=== PATIENT | male | born 1950 | race Caucasian/White ===

== ENCOUNTER 2020-08-07 07:19 | Outpatient (REF) | payer MEDICARE, SELFPAY ==
[2020-08-07 08:09] LABS: MANUAL DIFF FLAG NO
[2020-08-07 08:14] LABS: Basophils Percent Auto 0.4 % (0-2); Eosinophils Absolute Auto 0.1 X10*3/uL (0.0-0.4); Eosinophils Percent Auto 2.7 % (0-4); Hematocrit 40.4 % (42-52); Hemoglobin 13.3 g/dl (14.0-18.0); Imm Gran Abs Auto 0.01 X10*3/uL (0.00-0.03); Imm Gran Pct Auto 0.2 % (0.0-0.4); Lymphocytes Absolute Auto 1.2 X10*3/uL (1.2-4.9); Lymphocytes Percent Auto 23.6 % (20-40); Mean Corpuscular HGB Conc 32.9 g/dl (31.0-36.0); Mean Corpuscular Hemoglobin 28.9 pg (27.0-33.0); Mean Corpuscular Volume 87.6 fL (80-98); Mean Platelet Volume 10.4 fL (9.4-12.4); Monocytes Absolute Auto 0.7 X10*3/uL (0.1-1.2); Monocytes Percent Auto 13.9 % (2-11); Neutrophils Percent Auto 59.2 % (45-73); Platelet Count 212 X10*3/uL (160-400); Red Blood Count 4.61 X10*6/uL (4.60-5.80); Red Cell Distribution Width 13.2 % (11.0-16.0); White Blood Count 5.1 X10*3/uL (4.8-10.8)
[2020-08-07 08:35] LABS: Alanine Aminotransferase 29 U/L (0-40); Albumin Level 4.2 g/dL (3.5-5.0); Alkaline Phosphatase 83 U/L (39-117); Anion Gap 9 (12-20); Aspartate Amino Transferase 30 U/L (5-37); Bilirubin Total 0.4 mg/dL (0.0-1.0); Blood Urea Nitrogen 25 mg/dL (9-16); Calcium 9.2 mg/dL (8.4-10.2); Carbon Dioxide 30 mmol/L (22-29); Chloride 106 mmol/L (96-108); Cholesterol 189 mg/dL; Estimated Glomerular Filt Rate > 60; Glucose Fasting 101 mg/dL (60-99); HDL Cholesterol 27 mg/dL; LDL Cholesterol Calculated 124 mg/dl; Potassium 4.9 mmol/L (3.3-5.1); Sodium 140 mmol/L (135-145); Total Protein 6.8 g/dL (6.5-8.0); Triglycerides 192 mg/dL
[2020-08-07 09:03] LABS: Thyroid Stimulating Hormone 1.48 uIU/mL (0.32-4.0)
== END 2020-08-07 07:20 | disposition home or self-care (01) ==
LOC: HO.LAB 07:19
PROVIDERS: PCP Internal Medicine; Visit Provider Internal Medicine
DX: Z00.00 Encounter for general adult medical examination without abnormal findings (principal); E11.9 Type 2 diabetes mellitus without complications; E03.9 Hypothyroidism, unspecified
CPT/HCPCS: 36415; 80053; 80061; 84443; 85025

== ENCOUNTER 2020-09-12 11:51 | Outpatient (REF) | payer MEDICARE, SELFPAY ==
--- NOTE | ~2020-09-12 | XR_ITS ---
EXAMINATION: XR KNEE, LEFT CLINICAL INFORMATION: Pain COMPARISON: None TECHNIQUE: Two views of the left knee. FINDINGS: Bones and soft tissues are normal. No fracture or joint effusion. Alignment is anatomic. Joint spaces are well maintained. No abnormal soft tissue calcification. XR/XR knee LT 2V IMPRESSION: Normal left knee.
== END 2020-09-12 11:52 | disposition home or self-care (01) ==
LOC: HO.XRAY 11:51
PROVIDERS: PCP Internal Medicine; Visit Provider Internal Medicine
DX: M25.562 Pain in left knee (principal)
CPT/HCPCS: 73560

== ENCOUNTER 2020-10-25 14:00 | Outpatient (RCR) | payer MEDICARE, SELFPAY ==
[2020-09-25 08:58] VITALS: BP 140/84
--- NOTE | 2020-09-25 10:17 | MHC.PT.EP ---
[facility] [place] Office [place] Office [place] Office [address] Sloane Gardiner [address] [phone] F: [phone] F: [phone] F: [phone] F: [phone] Physical Therapy Plan of Care Date of Evaluation: Date of Surgery: Diagnosis: dizziness and giddiness Assessment: 70 y/o male referred to PT with dizziness and giddiness. Describes dizziness as imbalance and feels like he veers to the L when he walks. He also feels challenged moving his head when he walks. Examination shows normal oculomotor tests, ? head thrust but no consistent, (-) VBI B, decreased cervical and lumbar AROM, impaired static balance especially with eyes closed and on foam, 20/24 DGI with impairments noted with H/V head turns and pivot turn, and impaired gait pattern. He was (-) for BPPV with Horacio-Hallpike and Elijah Maneuver. S/s consistent with vestibular hypofunction and he would benefit from PT 2x/week for 4 weeks to address impairments, implement HEP, and optimize functional mobility. Frequency and Duration: The patient will be seen 2x/week for 4 weeks Short Term Goals: 2 weeks 1. I with HEP 2. Pt will be able to stand with eyes closed on airex >30seconds without sway Alf Goals: 4 weeks 1. I with HEP and self management of sx in order to prevent falls 2. Tolerate position changes without complaints of unsteadiness to improve safety and return to pre-onset level -3. Pt to be able to functionally move in all planes without provocation of dizziness/ unsteadiness and return to PLOF in 4 weeks Treatment Plan: Modalities to reduce pain, spasms and effusion. Manual therapy to restore motion and function. Therapeutic exercise to improve strength and flexibility. Neuromuscular re-education for posture and balance. Therapeutic activities to return to functional activities of daily living. Electronically signed by: Trupti Billings PT Please sign and return to therapist. Thank you for your referral.
--- NOTE | 2020-11-01 13:08 | MHC.PT.DC ---
[facility] [place] Office [place] Office [place] Office [address] Sloane Gardiner [address] [phone] F: [phone] F: [phone] F: [phone] F: [phone] Physical Therapy Discharge Report Diagnosis: dizziness and giddiness Date of Surgery: Date of Evaluation: 09/25/20 Date of Discharge: 11/01/20 Treatments to Date: 8 Cancellations to Date: 0 No Shows to Date: 0 Discharge Status: Improved Function Independent with HEP Discharge Summary: Pt called to self d/c as he reports feeling better overall. At time of last attended visit, Continues to be challenged with staggered stance eyes closed static balance, but improves with eyes open. Walking with head turns, pt continues to minimally veer to L, but improves with increased repetitions. Introduced walking with ball pass/toss, pt able to maintain balance with no veering or mis-stepping. Anticipate d/c next visit to [facility]. Pt showing improvements with gait, balance, and he has noticed carryover into work/ daily life. Still mildly changed with narrow KEZIA eyes closed conditions. Electronically signed by: Trupti Billings PT Please sign and return to therapist. Thank you for your referral.
== END 2020-11-01 13:09 | disposition home or self-care (01) ==
LOC: HO.PTCHIC 14:00
PROVIDERS: PCP Internal Medicine; Visit Provider Internal Medicine
DX: R42 Dizziness and giddiness (principal)
CPT/HCPCS: 97110; 97112; 97162

== ENCOUNTER 2020-12-25 15:31 | Outpatient (REF) | payer MEDICARE, SELFPAY ==
[2020-12-25 16:19] LABS: MANUAL DIFF FLAG NO
[2020-12-25 16:24] LABS: Basophils Percent Auto 0.4 % (0-2); Eosinophils Absolute Auto 0.1 X10*3/uL (0.0-0.4); Eosinophils Percent Auto 2.2 % (0-4); Hematocrit 38.5 % (42-52); Hemoglobin 12.7 g/dl (14.0-18.0); Imm Gran Abs Auto 0.02 X10*3/uL (0.00-0.03); Imm Gran Pct Auto 0.4 % (0.0-0.4); Lymphocytes Absolute Auto 1.2 X10*3/uL (1.2-4.9); Lymphocytes Percent Auto 22.3 % (20-40); Mean Corpuscular Volume 87.9 fL (80-98); Mean Platelet Volume 10.6 fL (9.4-12.4); Monocytes Absolute Auto 0.7 X10*3/uL (0.1-1.2); Monocytes Percent Auto 12.2 % (2-11); Neutrophils Absolute Auto 3.3 X10*3/uL (2.0-8.3); Neutrophils Percent Auto 62.5 % (45-73); Platelet Count 210 X10*3/uL (160-400); Red Blood Count 4.38 X10*6/uL (4.60-5.80); Red Cell Distribution Width 13.1 % (11.0-16.0); White Blood Count 5.3 X10*3/uL (4.8-10.8)
[2020-12-25 16:54] LABS: Digoxin 0.7 ng/mL (0.8-2.0)
[2020-12-25 16:56] LABS: Blood Urea Nitrogen 25 mg/dL (9-16); Calcium 9.5 mg/dL (8.4-10.2); Estimated Glomerular Filt Rate > 60; Glucose Random 106 mg/dL (60-115)
[2020-12-25 17:18] LABS: Carbon Dioxide 30 mmol/L (22-29)
[2020-12-25 17:21] LABS: Anion Gap 10 (12-20); Chloride 104 mmol/L (96-108); Potassium 5.3 mmol/L (3.3-5.1); Sodium 139 mmol/L (135-145)
== END 2020-12-25 15:32 | disposition home or self-care (01) ==
LOC: HO.LAB 15:31
PROVIDERS: PCP Internal Medicine; Visit Provider Internal Medicine
DX: Z00.00 Encounter for general adult medical examination without abnormal findings (principal); R51.9 Headache, unspecified; I48.91 Unspecified atrial fibrillation; Z79.899 Other long term (current) drug therapy
CPT/HCPCS: 36415; 80048; 80162; 85025

== ENCOUNTER 2021-08-15 09:10 | Outpatient (REF) | payer BC, SELFPAY ==
[2021-08-15 10:54] LABS: Digoxin 0.5 ng/mL (0.8-2.0)
== END 2021-08-15 09:11 | disposition home or self-care (01) ==
LOC: HO.LAB 09:10
PROVIDERS: PCP Internal Medicine; Visit Provider Internal Medicine
DX: Z79.899 Other long term (current) drug therapy (principal); R26.89 Other abnormalities of gait and mobility
CPT/HCPCS: 36415; 80162

== ENCOUNTER 2022-05-13 13:10 | Outpatient (REF) | payer SELFPAY ==
--- NOTE | 2022-05-13 14:02 | MHC.AU.HA3 ---
Hearing Instrument Follow-Up- Binaural Date of Visit: 05/13/22 Follow-Up Summary: Patient was last at our clinic on 05/24/2019 for an audiological evaluation. He had a pair of [employer] hearing aids at the time, and followed up afterwards with a clinic that worked with [employer]. Since then he has purchased a pair of [employer] OPN RITEs from another clinic. Last night, he took the left instrument off, and the dome stayed in his ear. He inquired if we could get the dome out. The dome was able to successfully be removed from his left ear with tweezers. There is no redness or irritation in the canal. There is no wax. A new dome was placed on the left hearing aid, which appeared to stay on more securely. Recommendations: If the dome continues to fall off easily, he should follow up with the dispensing clinic. Diagnosis Code(s): Primary Diagnosis: H90.3 Bilateral Sensorineural Hearing Loss Signature: Provider: Rupali Carbajal, MELISSA-A
== END 2022-05-13 13:11 | disposition home or self-care (01) ==
LOC: HO.HAP 13:10
PROVIDERS: Visit Provider Internal Medicine
DX: Z46.1 Encounter for fitting and adjustment of hearing aid (principal); H90.3 Sensorineural hearing loss, bilateral
CPT/HCPCS: 92700

== ENCOUNTER 2024-05-14 10:31 | Emergency (ER) | payer MEDICARE, SELFPAY ==
[2024-05-14] VITALS (8 sets, daily range): BP systolic 127–163; BP diastolic 61–88; PULSE 72–80; RESP 14–18; TEMP 36.6–36.8; O2SAT 92–98; BMI 26.2
--- NOTE | ~2024-05-14 | CT_ITS ---
CLINICAL HISTORY: trauma, pain CT head without contrast Comparison: CT/SD/SR - BRAIN WO IV CONTRAST 01208 - 10/03/18 02:34 EDT Findings: No evidence of acute territorial infarct. There is mild scattered patchy low density in the periventricular and subcortical white matter. Diffuse volume loss is noted. No hydrocephalus. No hemorrhage, mass effect, mass lesion or midline shift. No abnormal extra-axial fluid. No calvarial fracture. Paranasal sinuses and mastoid air cells are clear. Impression: No evidence of acute process. Ischemic microangiopathy and diffuse volume loss. This document has been electronically signed by: Hugo Lee MD on 05/14/2024 13:56:06
--- NOTE | ~2024-05-14 | CT_ITS ---
CLINICAL HISTORY: trauma, pain CT abdomen and pelvis with contrast Comparison: None Findings: Moderately large right effusion with overlying consolidation. Right 8th rib fracture again noted. The liver, spleen, gallbladder, adrenal glands and pancreas demonstrate no acute process. Renal cysts are present. No obstructive uropathy or suspicious lesion. The bladder is decompressed. The prostate gland is mildly enlarged with coarse calcifications. There is no bowel obstruction or free air. Small fat containing bilateral inguinal hernias are noted. No free fluid, abscess or adenopathy. No retroperitoneal or intraperitoneal hemorrhage. Reformatted imaging of the lumbosacral spine demonstrates multilevel degenerative change without fracture or acute malalignment. Impression: Other than the previously described right-sided 8th rib fracture, there is no evidence of solid organ or hollow visceral traumatic injury involving the abdomen or pelvis. Several incidental findings. This document has been electronically signed by: Hugo Lee MD on 05/14/2024 13:55:42
--- NOTE | ~2024-05-14 | XR_ITS ---
CLINICAL HISTORY: fall 2 view chest x-ray Comparison: CR/SR - CHEST 2 VIEWS - 10/11/18 12:06 EDT Findings: There is patchy right lower lobe consolidation with a small right effusion. Cardiac and mediastinal contours are stable. No acute fracture. IMPRESSION: Patchy right lower lobe infiltrate, with a small right effusion. This document has been electronically signed by: Hugo Lee MD on 05/14/2024 12:21:01
--- NOTE | ~2024-05-14 | CT_ITS ---
CLINICAL HISTORY: abnormal CXR, r o pulmonary contusio CT chest with contrast Comparison: None Findings: The heart is mildly enlarged. There is atherosclerotic disease of the coronary arteries. No thyroid lesion. Multiple mildly enlarged lymph nodes are present within the mediastinum, nonspecific. No dissection or aneurysms. No central pulmonary embolism. There is a moderately large right effusion with overlying consolidation. There is no evidence of pneumothorax. There is a minimally displaced right 8th rib fracture. No left-sided rib fracture. Reformatted imaging of the spine demonstrates no fracture or malalignment. Impression: Minimally displaced right lateral 8th rib fracture. No pneumothorax. Moderately large right-sided effusion with overlying consolidation. Mild mediastinal adenopathy, nonspecific. Clinical follow-up recommended. Cardiomegaly. This document has been electronically signed by: Hugo Lee MD on 05/14/2024 13:53:29
--- NOTE | ~2024-05-14 | CT_ITS ---
CLINICAL HISTORY: trauma, pain CT cervical spine without contrast Comparison: None Findings: No fracture or acute malalignment. Multilevel degenerative changes are present most pronounced within the lower cervical spine. Facet joints are normally imbricating. No prevertebral soft tissue edema. No thyroid lesion. Impression: Multilevel degenerative change without acute process. This document has been electronically signed by: Hugo Lee MD on 05/14/2024 13:47:13
[2024-05-14 12:24] LABS: MANUAL DIFF FLAG NO
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
[2024-05-14] MEDS: ondansetron HCL 4 MG/2 ML VIAL IVPUSH (12:25)
[2024-05-14] MEDS: Morphine Sulfate 2 MG/ML CARTRIDGE IVPUSH (12:25)
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
[2024-05-14 12:35] LABS: Basophils Percent Auto 0.3 % (0-2); Eosinophils Absolute Auto 0.1 X10*3/uL (0.0-0.4); Hematocrit 32.7 % (42.0-52.0); Hemoglobin 10.8 g/dl (14.0-18.0); Imm Gran Abs Auto 0.03 X10*3/uL (0.00-0.03); Imm Gran Pct Auto 0.4 % (0.0-0.4); Lymphocytes Absolute Auto 1.2 X10*3/uL (1.2-4.9); Mean Corpuscular Hemoglobin 29.1 pg (27.0-33.0); Mean Corpuscular Volume 88.1 fL (80.0-98.0); Mean Platelet Volume 10.2 fL (9.4-12.4); Monocytes Percent Auto 13.1 % (2-11); Neutrophils Absolute Auto 5.6 x10*3/uL (2.0-8.3); Neutrophils Percent Auto 70.2 % (45-73); Platelet Count 223 X10*3/uL (160-400); Red Blood Count 3.71 X10*6/uL (4.60-5.80); Red Cell Distribution Width 13.7 % (11.0-16.0); White Blood Count 7.9 X10*3/uL (4.8-10.8)
[2024-05-14 12:38] LABS: INTERNATIONAL NORM RATIO 3.7 (0.9-1.1); Prothrombin Time 42.9 SEC (10.9-12.4)
--- NOTE | 2024-05-14 12:40 | ECG_ITS ---
Test Reason : TRAUMA Blood Pressure : */* mmHG Vent. Rate : 75 BPM Atrial Rate : * BPM P-R Int : * ms QRS Dur : 88 ms QT Int : 376 ms P-R-T Axes : * 70 -81 degrees QTcB Int : 419 ms Atrial fibrillation with frequent ventricular-paced complexes ST & T wave abnormality, consider inferolateral ischemia Abnormal ECG When compared with ECG of 03-Oct-2018 03:00, Intermittent natice conduction is noted Referred By: Ariana Field Electronically Signed By: HECTOR MCFADDEN MD
[2024-05-14] MEDS: iohexoL 350 MG/ML 100 ML INFUS..BTL IV (12:52)
[2024-05-14 12:56] LABS: Alanine Aminotransferase 22 U/L (0-40); Albumin Level 4.1 g/dL (3.5-5.0); Alkaline Phosphatase 82 U/L (39-117); Anion Gap 11 (12-20); Aspartate Amino Transferase 32 U/L (5-37); Bilirubin Total 0.5 mg/dL (0.0-1.0); Blood Urea Nitrogen 39 mg/dL (9-16); Calcium 9.3 mg/dL (8.4-10.2); Carbon Dioxide 27 mmol/L (22-29); Chloride 106 mmol/L (96-108); Creatinine Clr Calc Pharmacy 54.2; Estimated Glomerular Filt Rate > 60; Glucose Random 95 mg/dL (60-115); Potassium 4.7 mmol/L (3.3-5.1); Sodium 139 mmol/L (135-145); Total Protein 7.2 g/dL (6.5-8.0)
[2024-05-14] MEDS: 0.9 % Sodium Chloride 500 ML 999 ML IV (13:10)
[2024-05-14 13:21] LABS: Troponin-I High Sensitivity 25.4 ng/L (<3.5-35.0)
--- NOTE | 2024-05-14 14:02 | PC.NURSE ---
IVF administered per provider order. ekg performed/provided to MD. pt pending CT results at this time. pt remains on 2L via NC - no sob/wob noted. respirations even/unlabored. plan of care ongoing.
[2024-05-14] MEDS: Morphine Sulfate 4 MG/ML CARTRIDGE IVPUSH (14:35)
--- NOTE | 2024-05-14 14:37 | PC.NURSE ---
pt verbalizes increase in pain despite previous interventions. pt remedicated per provider order. effectiveness pending. pt/ notified/aware of plan in regards to being transferred to [facility].
--- NOTE | 2024-05-14 16:11 | PC.NURSE ---
report given to SYL alberts at this time.
--- NOTE | 2024-05-14 16:18 | PC.NURSE ---
attempted to call and give report to RN at [facility] at this time - no response. will reattempt.
== END 2024-05-14 18:52 | disposition short-term general hospital (02) ==
PROVIDERS: Nurse Practitioner Family; Emergency Provider Emergency Medicine
DX: S22.31XA Fracture of one rib, right side, initial encounter for closed fracture (principal); R07.81 Pleurodynia; J90 Pleural effusion, not elsewhere classified; I48.91 Unspecified atrial fibrillation; R94.31 Abnormal electrocardiogram [ECG] [EKG]; R11.0 Nausea; R10.2 Pelvic and perineal pain; M54.2 Cervicalgia; R51.9 Headache, unspecified; V86.59XA Driver of other special all-terrain or other off-road motor vehicle injured in nontraffic accident, initial encounter; Y93.89 Activity, other specified; Y92.89 Other specified places as the place of occurrence of the external cause; Y99.8 Other external cause status; Z79.01 Long term (current) use of anticoagulants; Z79.899 Other long term (current) drug therapy
CPT/HCPCS: 36415; 70450; 71046; 71260; 72125; 74177; 80053; 84484; 85025; 85610; 93005; 96361; 96374; 96375; 99285; J2270; J2405; Q9967

== ENCOUNTER → 2024-05-14 10:52 | Outpatient (BNV) | payer MEDICARE, SELFPAY | PROVIDERS: Emergency Provider Emergency Medicine; Visit Provider Radiology Vascular & Interventional Radiology | DX: R07.82 Intercostal pain (principal); R06.02 Shortness of breath; R10.10 Upper abdominal pain, unspecified | CPT/HCPCS: 70450; 71046; 71260; 72125; 74177 ==

== ENCOUNTER → 2024-05-14 12:40 | Outpatient (BNV) | payer MEDICARE, SELFPAY | PROVIDERS: Emergency Provider Emergency Medicine; Visit Provider Internal Medicine Cardiovascular Disease | DX: R94.31 Abnormal electrocardiogram [ECG] [EKG] (principal) | CPT/HCPCS: 93010 ==

== ENCOUNTER 2025-01-19 09:30 | Day surgery (SDC) | payer MEDICARE, SELFPAY ==
--- OUTSIDE RECORDS SUMMARY | 2024-09-14 09:55 | XMS_ITS ---
Author Organization [facility] Address [address] [place] [phone] Care Team Providers Care Retail Advertising Account Executive Name Role Phone Robert Holland Primary Care Provider Ronan Napier Jr REASON FOR VISIT COLON SCREENING Encounters Encounter Location Date Provider Diagnosis [facility] [address] [place] [phone] 09/14/2024 Ronan Wilcox Jr Plan Of Treatment Next Appt Details Provider Name:Ronan palmer Jr, 01/19/2025 12:40:00 PM, [address] [place] [address] , [place], [place], [phone], Progress Notes * JAMES SANDHU PDOB: [birth year] (74 yo M)Acc No.[id number]:09/14/2024 Progress Notes Patient: Wade CLARKE JAMES Solomon Provider: Manolo Wilcox MD :1950 A ge:74 Y S ex:Male Date:09/14/2024 Address:[address] [place], [place] [id number] Pcp:Robert Holland Subjective: * Chief Complaints: * 1 . COLON SCREENING. * Medical History: Objective: * Vitals: Assessment: Plan: * Treatment: * * The named appointment provid er may or may not be the originator of this progress note, and it is not deemed complete until electronically signed by the appointment provider. Sign off status: Pending * Provider: Manolo Wilcox MD Date: 0 09/14/2024 Generated for Javon hall/Debbie/Demetrius on: 0 12/22/2024 10:40 AM EDT
--- OUTSIDE RECORDS SUMMARY | 2024-12-21 10:55 | XMS_ITS ---
Author Organization [facility] Address [address] [place] [phone] Care Team Providers Care Water Supply Technician Name Role Phone Robert Holland Primary Care Provider Ronan Napier Jr [phone] Allergies No Known Allergies REASON FOR VISIT Patient presents today for a COLON SCREENING Medications Medication SIG (Take, Route, Fr equency, Duration) Notes Start Date End Date Status Warfarin Sodium 5 MG 1 tablet Orally Once a day Active Digoxin 0.25 MG/ML as directed daily Active Problems Problem Type SNOMED Code ICD Code Onset Dates Problem Status W/U Status Risk Notes Problem Screening for malignant neoplasm of colon (512756623) Encounter for screening for malignant neoplasm of colon (Z12.11) Active confirmed Problem Long-term current use of anticoagulant (439871203) director asset (current) use of anticoagulants (Z79.01) Active confirmed Problem History of adenomatous polyp of colon (Z86.0101) Active confirmed Vital Signs Temperature 99.3 degrees Fahrenheit 12/22/19 25 Blood pressure systolic 001 mm Hg 12/22/19 25 Blood pressure diastolic 01 mm Hg 025 Height 67.25 in 12/21/2024 Weight 161.0 lbs 12/21/2024 BMI 25.03 kg/m2 12/21/2024 Encounters Encounter Location Date Provider Diagnosis [facility] [address] [place] [phone] 12/21/2024 Ronan Wilcox Jr Encounter for screening for malignant neoplasm of colon Z12.11 ; correction (current) use of anticoagulants Z79.01 and History of adenomatous polyp of colon Z86.0101 Assessments Encounter Date Diagnosis (ICD Code) Assessment Notes Treatment Notes Treatment Clinical Notes Section Notes 12/21/2024 Encounter for screening for malignant neoplasm of colon (ICD-10 - Z12.11) Personal history of colon we discussed colonoscopy today. We discussed risks and benefits of the procedure today. We discussed that this is optional after age 75. He understands risks and benefits and agrees to proceed. He will contact the Coumadin clinic and arrange for bridging with Lovenox prior to the procedure. We will obtain his most recent cardiology evaluations. 12/21/2024 correction (current) use of anticoagulants (ICD-10 - Z79.01) Personal history of colon we discussed colonoscopy today. We discussed risks and benefits of the procedure today. We discussed that this is optional after age 75. He understands risks and benefits and agrees to proceed. He will contact the Coumadin clinic and arrange for bridging with Lovenox prior to the procedure. We will obtain his most recent cardiology evaluations. 12/21/2024 History of adenomatous polyp of colon (ICD-10 - Z86.0101) Personal history of colon we discussed colonoscopy today. We discussed risks and benefits of the procedure today. We discussed that this is optional after age 75. He understands risks and benefits and agrees to proceed. He will contact the Coumadin clinic and arrange for bridging with Lovenox prior to the procedure. We will obtain his most recent cardiology evaluations. Plan Of Treatment Future Test Test Name Order Date COLONOSCOPY 12/21/2024 Next Appt Details Provider Name:Ronan Nunez palmer , 01/19/2025 12:40:00 PM, [address] [place] [address], [id number], Progress Notes * JAMES SANDHU PDOB: [birth year] (74 yo M)Acc No.[id number]:12/21/2024 Progress Notes Patient: JAMES VALENTINE Provider: Manolo Wilcox MD :1950 A ge:74 Y S ex:Male Date:12/21/2024 Address:[address] [place], [place] [id number] Pcp:Robert Holland Subjective: * Chief Complaints: * 1 . Patient presents today for a COLON SCREENING. * Medical History: C olonoscopy 08-25-2006, Colon polyp, Elevated cholesterol, A Fib, Pacemaker. 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 * Family History: F ather: , Father-brain ca. M other: . P aternal Grand Mother: Paternal Grandmother-ovarian ca. No family history of colon cancer or liver cancer. * Social History: T obacco Use: T obacco Use/Smoking A re you a: former smoker , How long has it been since you last smoked?: > 10 years. D rugs/Alcohol: A lcohol Screen P oints: 2, Interpretation: Negative. M iscellaneous: M arital status: . Occupation: photo studio assistant. * Medications: T aking Warfarin Sodium 5 MG Tablet 1 tablet Orally Once a day , Taking Digoxin 0.25 MG/ML Solution as directed daily , Discontinued Gemfibrozil , Discontinued Coumadin , Discontinued Aspir-81 , Discontinued MoviPrep 100 GM Solution Reconstituted as directed Orally DIRECTED , Medication List reviewed and reconciled with the patient * Allergies: N .K.D.A. Objective: * Vitals: W t:161.0lbs, Ht: 67.25 in, BMI:25.03Index, BP:001/01mm Hg, Temp:99.3, Wt-k.03. Assessment: * Assessment: 1. L thomas term (current) use of anticoagulants - Z79.01 (Primary) 2 . E ncounter for screening for malignant neoplasm of colon - Z12.11 3 . H istory of adenomatous polyp of colon - Z86.0101 Personal history of colon we discussed colonoscopy today. We discussed risks and benefits of the procedure today. We discussed that this is optional after age 75. He understands risks and benefits and agrees to proceed. He will contact the Coumadin clinic and arrange for bridging with Lovenox prior to the procedure. We will obtain his most recent cardiology evaluations. Plan: * Treatment: 2.?Encounter for screening for malignant neoplasm of colon?Procedure: COLONOSCOPY (Ordered for 12/21/2024)* sched for 01/05/25 at 12:40 p mmacmiralax 3.?History of adenomatous polyp of colon?Procedure: COLONOSCOPY (Ordered for 12/21/2024)* sched for 01/05/25 at 12:40 p mmacmiralax * Preventive Medicine: Counseling: C are goal follow-up plan: A yessenia Normal BMI Follow-up D ietary management education, guidance, and counseling, B OR management provided Y es. Screenings: F all Risk Screening F all Risk Assessment: N o falls in the past year, S creening: N o falls in the past year, A ssessment: N ot performed, no reason specified, P maulik of Care: N ot documented, no reason specified. * * The named appointment provid er may or may not be the originator of this progress note, and it is not deemed complete until electronically signed by the appointment provider. Sign off status: Pending * Provider: Manolo Wilcox MD Date: 0 12/21/2024 Generated for Javon hall/Debbie/Nimcoitting on: 0 12/22/2024 10:40 AM EDT
--- OUTSIDE RECORDS SUMMARY | 2024-12-22 10:41 | XMS_ITS | Clinical Summary ---
Author Organization [facility] Address [address] [place] [phone] Phone Care Team Providers Care Marketing Production Specialist Name Role Phone Robert Holland MD Primary Care Provider + Allergies No known active allergies Medications ondansetron (ZOFRAN-ODT) 4 MG disintegrating tablet (To-Go) Take 1-2 tablet(s) by mouth every 8 hours as needed for nausea/vomi ting 6 tablet 3 Active Social History Tobacco Use Types Packs/Day Years Used Date Smoking Tobacco: Former Cigarettes Smokeless Tobacco: Never Tobacco Cessation:Counseling Given: Not Answered Alcohol Use Standard Drinks/Week Comments Yes 0 (1 standard drink = 0.6 oz pur e alcohol) occ Education Answer Date Recorded Are you interested in more education? Not on krys e 10/06/2022 Are you concerned about learning? Not on file 10/06/2022 No 10/06/2022 No 10/06/2022 Digital Access Answer Date Recorded No 10/06/2022 No 10/06/2022 Reliable internet access at home? Not on file 10/06/2022 Device with a working camera? Not on file Intimate Partner Violence Answer Date R ecorded Are you denied basic needs s uch as food, clothing, or medical care? No 03/13/2023 In the past 12 months have y ou been in a relationship with a person who hurts, threatens, or tries to control you? No 03/13/2023 Are you denied basic needs s uch as food, clothing, or medical care? No 03/13/2023 In the past 12 months have y ou been in a relationship with a person who hurts, threatens, or tries to control you? No 03/13/2023 Sex and Gender Information Value Date Recorded Sex Assigned at Male 03/13/2023 4:55 PM EST Legal Sex Male 7:18 PM EST Gender Identity Male 03/13/2023 4:55 PM EST Sexual Orientation Straight 03/13/2023 4: 55 PM EST Last Filed Vital Signs Vital Sign Reading Time Taken Comments Blood Pressure 136/70 03/13/2023 9:27 PM EST Pulse 72 03/13/2023 9:27 PM EST Temperature 36.7 C (98.1 F) 03/13/2023 8:02 PM EST Respiratory Rate 16 03/13/2023 9:27 PM EST Oxygen Saturation 100% 03/13/2023 9:27 PM EST Inhaled Oxygen Concentration - - Weight 73.5 kg (162 lb) 03/13/2023 4:57 PM EST Height 170.2 cm (5' 7 ) 03/13/2023 4:57 PM EST Body Mass Index 25.37 03/13/2023 4:57 PM EST Plan of Treatment Health Maintenance Due Date Last Done Comments LIPID PANEL 1950 DEPRESSION SCREENING 1960 SMOKING Hx and SMOKELESS TOBACCO SCREENING 1961 HEPATITIS C SCREENING 1966 RSV VACCINE (1 - 1-dose 75+ series) 2023 COVID-19 VACCINE (2023- season) 2023 INFLUENZA VACCINE (#1) 2024 2, 01/21/2021, 01/08/2020, Additional history exists Adult Td,Tdap Booster 01/28/2026 01/29/2016 PNEUMOCOCCAL VACCINES (50+ years) Completed 01/19/2018, 09/30/2017, 05/17/2014 ZOSTER VACCINES Completed 06/28/2019, 02/25/2019 HEPATITIS A VACCINES Aged Out No long er eligible based on patient's age to complete this topic HIB VACCINES Aged Out No longer eligi ble based on patient's age to complete this topic MENINGOCOCCAL VACCINES (ACWY) Aged Out No longer eligible based on patient's age to complete this topic MENINGOCOCCAL VACCINES (B) Aged Out N o longer eligible based on patient's age to complete this topic Medical Devices Not on file Insurance MEDICARE PPO BLUE REPLACEMENT MEDICARE PPO BLUE REPLACEMENT MEDICARE PPO BLUE REPLACEMENT MEDICARE PPO BLUE REPLACEMENT MEDICARE PPO BLUE REPLACEMENT MEDICARE PPO BLUE REPLACEMENT Care Teams Marketing Production Specialist Relationship Specialty Start Date End Date Robert Holland MD [address] [place] [id number] PCP - General 10/06/22 Additional Source Comments The information contained in this document represents components of the legal health record. It is not the complete legal health record.[facility]
--- OUTSIDE RECORDS SUMMARY | 2024-12-22 10:41 | XMS_ITS | Patient Health Record ---
Author Organization [facility] Address [address] [place] [address] Care Team Providers Care Bucket Hooker Name Role Phone Robert Holland Primary Care Provider Ronan Napier Jr Unavailable [phone] Allergies No Known Allergies Reason For Referral No Information Medications Medication SIG (Take, Route, Fr equency, Duration) Notes Start Date End Date Status Digoxin 0.25 MG/ML as directed daily Active Warfarin Sodium 5 MG 1 tablet Orally Once a day Active Immunizations Vaccine Route Administration Date Status Comme nts Influenza Unknown 03/15/2024 Administered Problems Problem Type SNOMED Code ICD Code Onset Dates Problem Status W/U Status Risk Notes Problem Colon cancer screening (856884860) Colon cancer screening (V76.51) Active confirmed Problem Rectal bleeding (37312300) Rectal bleeding (569.3) Active confirmed Problem Long-term current use of anticoagulant (036481630) watermaster (current) use of anticoagulants (V58.61) Active confirmed Problem Screening for malignant neoplasm of colon (010086314) Encounter for screening for malignant neoplasm of colon (Z12.11) Active confirmed Problem Long-term current use of anticoagulant (170440666) custodial (current) use of anticoagulants (Z79.01) Active confirmed Problem History of adenomatous polyp of colon (486224121) History of adenomatous polyp of colon (Z86.0101) Active confirmed Vital Signs Temperature 99.3 degrees Fahrenheit 12/21/2024 Blood pressure diastolic 01 mm Hg 12/21/2024 Height 67.25 in 12/21/2024 Blood pressure systolic 001 mm Hg 12/21/2024 Weight 161.0 lbs 12/21/2024 BMI 25.03 kg/m2 12/21/2024 Encounters Encounter Location Date Provider Diagnosis [facility] [address] [place] [address] 12/21/2024 Ronan Wilcox Jr Encounter for screening for malignant neoplasm of colon Z12.11 ; custodial (current) use of anticoagulants Z79.01 and History of adenomatous polyp of colon Z86.0101 [facility] [address] [place] [phone] 09/11/2024 Ronan Wilcox Jr Assessments Encounter Date Diagnosis (ICD Code) Assessment [...] obtain his most recent cardiology evaluations. 12/21/2024 watermaster (current) use of anticoagulants (ICD-10 - Z79.01) [...] Future Test Test Name Order Date COLONOSCOPY 11/11/2011 COLONOSCOPY 12/21/2024 Next Appt Details Provider Name:Ronan palmer Jr, 01/19/2025 12:40:00 PM, [address] , [place], [place], [id number], Insurance Providers Payer Name Payer Address Payer Phone Subscriber Number Group Number Insured Name Patient Relationship to Insured Coverage Start Date Coverage End Date [facility] [address] [place] [address] [phone] [id number] JAMES SANDHU Self - patient is the insured Medical (General) History Medical History History ICD Code colonoscopy 08-25-2006 colon polyp elevated cholesterol A Fib Pacemaker Surgical History Surgery Date(Month/Year) pacemaker 2008 mitral valve replacement with mechanical St. Judes valve hemorrhoid surgery hernia repair x 3
--- OUTSIDE RECORDS SUMMARY | 2024-12-22 10:41 | XMS_ITS ---
Author Name [facility] Organization Unknown Care Team Organization Name Specialty Phone Email Start Date End [id number]
--- OUTSIDE RECORDS SUMMARY | 2024-12-22 10:41 | XMS_ITS | Clinical Summary ---
Author Organization [facility], Address [address] [place] [address] [address] [place] [address] Phone Care Team Providers Care Instrumental Musician Name Role Phone Nleson Angelo MD Primary Care Provider [phone] Allergies No known active allergies Medications Calcium Carbonate-Vit D-Min (CALTRATE PLUS PO) Take by mouth Active digoxin (LANOXIN) 250 MCG tablet Take 250 mcg by mouth 1 (one) time each day Active Flaxseed, Linseed, (Flax Seed Oil) 1000 MG capsule Take by mouth Activ e warfarin (COUMADIN) 5 MG tablet Take 5 mg by mouth 1 (one) time each day Take as directed per After Visit Summary. Active Active Problems Problem Noted Date Diagnosed Date Multiple renal cysts 04/07/2022 Hyperkalemia 04/07/2022 Anemia 04/02/2022 Social History Tobacco Use Types Packs/Day Years Used Date Smoking Tobacco: Never Assessed Sex and Gender Information Value Date Recorded Sex Assigned at Not on file Legal Sex Male 8:51 AM EST Gender Identity Not on file Sexual Orientation Not on file Plan of Treatment Health Maintenance Due Date Last Done Comments Influenza Vaccine (#1) 2024 Pneumococcal Vaccine: 50+ Years Completed 01/19/2018, 09/30/2017, 05/17/2014 Hepatitis B Vaccine Aged Out No longe r eligible based on patient's age to complete this topic Insurance [facility] Care Teams Instrumental Musician Relationship Specialty Start Date End Date Nelson Angelo MD [address] [place] [address] [address] [place], [place] PCP - General Internal Medicine 03/10/22
[2025-01-17 10:39] VITALS: BMI 25.0
[2025-01-19 09:50] VITALS: BP 162/97; PULSE 87; RESP 20; TEMP 36.4; O2SAT 97; BMI 24.7
[2025-01-19] MEDS: Lactated Ringers 1,000 ML 50 ML IVCONT (10:09)
--- NOTE | 2025-01-19 10:30 | P.CONAN_ITS ---
Documented by User: Veronique Sosa NP 01/17/25 12:52 HPI - Anesthesia Eval Consult details Narrative: 74yo M for Colonoscopy Follows [facility] for s/p MVR 2002, afib, pacer. No echo within 5 years. Stable at 05/2024 office visit. On Warfarin [facility] ER 12/2024 with dizziness - w/u negative and d/c home PMFSH Active Problems Active Problems: All Active Problems Cough (Acute) Balance disorder (Acute) Conjunctivitis (Acute) Vertigo (Acute) Dizziness (Acute) Ear pressure (Acute) Atrial fibrillation (Acute) Past Medical History Medical History (Updated 01/17/25 @ 10:41 by Estrellita Kramer RN) Cardiac pacemaker Colonic polyp Atrial fibrillation Erectile dysfunction Surgical History Surgical History (Updated 01/19/25 @ 10:12 by Lisa Overton RN) Hx of colonoscopy Hx of hemorrhoidectomy Hx of hernia repair Mitral valve replaced Social History Social History Housing: House Alcohol intake: current Alcohol intake frequency: holidays/special occasions only Patient Tobacco Use Status: Former Tobacco user Tobacco use type: Cigarette e-Cigarette/Vaping Use: Never Used Second Hand Smoke Exposure: No Have you been hit, kicked, punched, or otherwise hurt by someone within the past year? If so, by whom?: No Are you DNR?: No Advance Directives: No Advance Directives Information Provided: Yes service: Yes Current occupational status: retired Cognitive needs: No Hearing needs: Yes Vision needs: Yes Meds Allergies Allergy/AdvReac Type Severity Reaction Status Date / Time No Known Allergies Allergy Verified 05/14/24 10:44 Home Medications ?Medication ?Instructions ?Recorded ?Confirmed ?Last Taken ?Type warfarin 5 mg tablet 5 mg PO DAILY 12/25/2001/1701/11/25 History enoxaparin 80 mg/0.8 mL 70 mg subcut Q12H 01/19/25 0 01/19/25 01/18/25 10:00 History subcutaneous syringe Exam Height,Weight and Vital Signs: Height 5 ft 7.25 in Weight 73.028 kg Pertinent Lab Results Pertinent Lab Results: Narrative Narrative: EKG 12/2024 Ventricular Rate: 73 BPM Atrial Rate: 64 BPM QRS Duration: 162 ms Q-T Interval: 442 ms QTC Calculation(Bazett): 486 ms R [place]: 268 degrees T [place]: 87 degrees Ventricular-paced rhythm with underlying atrial fibrillation Abnormal ECG When compared with ECG of 29-Nov-2024 16:48, Ventricular pacing is now noted Confirmed by Rosario Langston ([id number]) on 01/08/2025 11:35:02 AM Pacer interrogation 05/2024 ?device interrogation reveals normal lead and device functioning continue with RVR from AF lasting up to 1 minute and 48 seconds..? Remaining longevity of 4 years and 10 months. Assessment and Plan Assessment Anesthesia Assessment: Chart Reviewed Documented by User: Jessie Castañeda, 01/19/25 10:44 PMF Past Medical History Medical History (Updated 01/17/25 @ 10:41 by Estrellita Kramer RN) Cardiac pacemaker Colonic polyp Atrial fibrillation Erectile dysfunction Family History Family history of problems with anesthesia: No Surgical History Surgical History (Updated 01/19/25 @ 10:12 by Lisa Overton RN) Hx of colonoscopy Hx of hemorrhoidectomy Hx of hernia repair Mitral valve replaced History of Problems with Anesthesia: No Social History Social History Housing: House Alcohol intake: current Alcohol intake frequency: holidays/special occasions only Patient Tobacco Use Status: Former Tobacco user Tobacco use type: Cigarette e-Cigarette/Vaping Use: Never Used Second Hand Smoke Exposure: No Have you been hit, kicked, punched, or otherwise hurt by someone within the past year? If so, by whom?: No Are you DNR?: No Advance Directives: No Advance Directives Information Provided: Yes service: Yes Current occupational status: retired Cognitive needs: No Hearing needs: Yes Vision needs: Yes Meds Allergies Allergy/AdvReac Type Severity Reaction Status Date / Time No Known Allergies Allergy Verified 05/14/24 10:44 Home Medications ?Medication ?Instructions ?Recorded ?Confirmed ?Last Taken ?Type warfarin 5 mg tablet 5 mg PO DAILY 12/25/2001/1701/11/25 History enoxaparin 80 mg/0.8 mL 70 mg subcut Q12H 01/19/25 0 01/19/25 01/18/25 10:00 History subcutaneous syringe Exam Exam Date and Time: 01/19/25 1030 Height,Weight and Vital Signs: Height 5 ft 7.25 in Weight 73.028 kg Vital Signs Temperature 97.5 F 01/19/25 09:50 Pulse Rate 87 01/19/25 09:50 Respiratory Rate 20 01/19/25 09:50 Blood Pressure 162/97 H 01/19/25 09:50 Pulse Oximetry 97 01/19/25 09:50 Oxygen Delivery Method Room Air 01/19/25 09:50 Temperature 97.5 F 01/19/25 09:50 Pulse Rate 87 01/19/25 09:50 Respiratory Rate 20 01/19/25 09:50 Blood Pressure 162/97 H 01/19/25 09:50 Pulse Oximetry 97 01/19/25 09:50 Oxygen Delivery Method Room Air 01/19/25 09:50 Airway Mallampati Class: II TM Dist: >3cm Neck ROM: Full Partial: Upper and Lower Heart: S1S2 Lungs: CTAB Assessment and Plan Assessment Anesthesia Assessment: Anesthesia Plan Discussed and Chart Reviewed Final Anesthetic Review Family History of Problems with Anesthesia: No History of Problems with Anesthesia: No NPO: Yes ASA Class: III Final Preanesthetic Review: No Changes in Pt Med Stat, Meds/Allgs Chart Reviewed, Consent Obtained/Reviewed and Anes Risks/Benef Reviewed Patient Risk: Intermediate Procedure Risk: Low Anesthetic Plan Anesthetic Plan: MAC: and Agree w/ Assess. and Plan Disposition: Standard PACU
[2025-01-19 10:42] LABS: INTERNATIONAL NORM RATIO 1.0 (0.9-1.1); Prothrombin Time 11.7 SEC (10.9-12.4)
--- NOTE | 2025-01-19 11:06 | MHC.SHP ---
Pre-Procedural Eval Section A - 24 Hr Update-Section A only Date of Service: 01/19/25 Section B - Complete if H&P > 30 days Chief Complaint: screening,hx adenomatous colon polyps Details of Present Illness: see H&P no changes Relevant Family History (Specify if Yes): No Relevant Social History: None Present Medications: see Short Stay Collaborative assessment Medical History: No relevant PMH History of Previous Operations: No relevant previous surgery Allergies: Allergies Allergy/AdvReac Type Severity Reaction Status Date / Time No Known Allergies Allergy Verified 05/14/24 10:44 Review of Systems Sugical H&P ROS: Negative: Constitution, Cardiovascular, Respiratory, Neurological, Psychiatric, Hem-Onc, Allergic/Immunologic, Gastrointestinal, Genitourinary, Musculoskeletal, Integumentary, Endocrine and Eyes/Ears/Nose/Throat Exam Surgical H&P Exam: Normal: HEENT, Normal: Heart, Normal: Lungs, Normal: Extremities, Normal: Abdomen, Normal: Skin and Normal: Neurological Plan Diagnosis/Plan: Unchanged I have reviewed the history and physical and performed a pertinent physical examination on my patient. No changes have occurred unless specified. Time Spent With Patient Time: Total time managing care of this patient today ____ minutes.
[2025-01-19 11:41] VITALS: BP 140/70; PULSE 79; RESP 18; TEMP 36.4; O2SAT 97
[2025-01-19 11:46] VITALS: BP 120/49; PULSE 76; RESP 17; O2SAT 96
[2025-01-19 11:55] VITALS: BP 127/59; PULSE 71; RESP 15; O2SAT 99
[2025-01-19 12:00] VITALS: BP 140/79; PULSE 81; RESP 14; TEMP 36.3; O2SAT 99
--- NOTE | 2025-01-19 12:36 | OP_ITS ---
DATE OF SERVICE: 01/19/2025 SURGEON: Ronan Wilcox MD INDICATIONS: Colon cancer screening and prior history of adenomatous colon polyps. PREOPERATIVE DIAGNOSIS: POSTOPERATIVE DIAGNOSIS: PROCEDURE PERFORMED: Colonoscopy to the terminal ileum with biopsy. ESTIMATED BLOOD LOSS: COMPLICATIONS: ANESTHESIA: Monitored anesthesia care. ASSISTANTS: SPECIMENS: DESCRIPTION OF PROCEDURE: A history and physical was performed. The risks and benefits of the procedure were explained to the patient. Informed consent was obtained. The patient was placed in the left lateral decubitus position. A digital rectal exam was performed and was found to be normal. The Olympus pediatric video colonoscope was introduced into the rectum and advanced to the cecum. The cecum was identified by transillumination, palpation, and identification of ileocecal valve. Examination was performed. The scope was removed. He tolerated the procedure well and was returned to the recovery area in stable condition. FINDINGS: The terminal ileum was examined and appeared normal. The visualized colonic mucosa was normal. The quality of the prep was good. In the right colon was a less than 5 mm sessile polyp, which was removed with a biopsy forceps. No other polyps were identified. There was mild sigmoid diverticulosis. Retroflexed examination showed internal hemorrhoids. IMPRESSION: Colon polyp. RECOMMENDATION: Follow up the biopsy results. MD MEENAKSHI Matrin/ELLIE / [id number]
== END 2025-01-19 12:38 | disposition home or self-care (01) ==
PROVIDERS: Nurse Practitioner; PCP Family Medicine; Visit Provider Internal Medicine Gastroenterology
PROC: 0DJD8ZZ Inspection of Lower Intestinal Tract, Via Natural or Artificial Opening Endoscopic (ICD-10-PCS; CPT 45378; principal; 2025-01-19 10:50)
DX: Z12.11 Encounter for screening for malignant neoplasm of colon (principal); Z86.0101 Personal history of adenomatous and serrated colon polyps; D12.2 Benign neoplasm of ascending colon; K57.30 Diverticulosis of large intestine without perforation or abscess without bleeding; K64.8 Other hemorrhoids; I48.91 Unspecified atrial fibrillation; E78.5 Hyperlipidemia, unspecified; Z95.0 Presence of cardiac pacemaker; Z95.2 Presence of prosthetic heart valve; Z79.01 Long term (current) use of anticoagulants; Z87.891 Personal history of nicotine dependence
CPT/HCPCS: 45380; 36415; 85610; 88305; J2003; J2704